=== PATIENT | female | born 1980 | race Caucasian/White ===

== ENCOUNTER 2019-08-14 09:17 | Day surgery (SDC) | payer OTHER ==
[2019-08-14] MEDS ORDERED: CEFAZOLIN/SWI 2gm 2 GM/20 ML SYR ONE (09:36)
[2019-08-14] MEDS ORDERED: Ringers Lactate 1,000 ML IV ONE (09:38)
[2019-08-14 09:41] LABS: Specific Gravity 1.025 (1.005-1.030)
[2019-08-14] MEDS ORDERED: propofoL 200 MG/20 ML VIAL IV ONE (10:30)
[2019-08-14] MEDS ORDERED: LIDOCAINE 2% MPF 5 ML VIAL ONE (10:31)
[2019-08-14] MEDS ORDERED: MIDAZOLAM HCL 2 MG/2 ML INJ ONE (10:31)
[2019-08-14] MEDS ORDERED: FENTANYL CITR 100 MCG/2 ML ONE ×2 (10:31→11:15)
[2019-08-14] MEDS ORDERED: ONDANSETRON 4 MG/2 ML VIAL ONE (10:44)
[2019-08-14] MEDS ORDERED: KETOROLAC 30 MG/ML INJ ONE (11:17)
[2019-08-14 11:49] VITALS: O2SAT 100
[2019-08-14] MEDS ORDERED: HYDROCODONE/APAP 5/325 MG TAB ONE (12:44)
[2019-08-14 16:23] VITALS: BP 151/92; TEMP 97.2
--- NOTE | 2019-08-14 23:25 | OP ---
Date of Procedure: 08/14/2019 Surgeon: Anni Leyva MD Preoperative Diagnosis: Menorrhagia. Postoperative Diagnosis: Menorrhagia. Procedure Performed: Hysteroscopy, endometrial ablation with NovaSure. Anesthesia: General with LMA. Specimens: None. Complications: None. Drains: None. Condition: Stable. Findings: Uterus anteflexed with hysteroscopic exam. The cavity was small. The cavity measurements , length 4 cm and 3.74 cm, width 2.5 cm, power 55 william, and time of ablation 120 seconds. Description Of Procedure: After informed consent was verified, patient was taken back to OR and 2 g of Ancef were given. She was placed in a supine fashion. General anesthesia given and placed in a d orsal lithotomy position using Ben stirrups. Pelvic exam performed. Uterus anteflexed small. No adnexal masses. Prep x3 with Betadine was done and anterior lip grasped with 2 Allis clamps. Diagnostic SlimLine hys teroscope was used to perform the hysteroscopy. Cavity was visualized. Lining appeared to be unrema rkable. Cavity was small. Scope was removed after measuring the top of the fundus directly and then measuring the cervix directly from the internal os to the external os. Then, the calculated cavity length was 4 cm. This was input into the NovaSure generator. Then, the width was assessed after dep loying the NovaSure device into the uterine cavity. The width was 2.5 cm. Power setting was at 55 w atts and time of ablation was 120 seconds. Then, the power was calculated to be 55 william. Then, the cervix was occluded with the help of the kn ob on the shaft of the NovaSure device. Then, once the cavity integrity test was done in the past, t he generator was enabled and the ablation was started. After the 2 minute ablation cycle, the device was undeployed in the usual fashion. Then, hysteroscope was placed into the uterine cavity and irri gated and visualized. There was excellent burden from each tubal ostium to the other and from the fu ndus all the way down to the internal os. The scope was removed. All instrument, needle, and sponge counts were done and were correct at the end of the case. Patient tolerated the procedure well. Tommy arevalo will follow up with us in 4 weeks. Estimated Blood Loss: Minimal. SK/MODL Voice ID: [id number] Report ID: [id number]
== END 2019-08-14 13:35 | disposition home or self-care (01) ==
LOC: OR 09:17
PROVIDERS: ATTEND Obstetrics & Gynecology
PROC: 0U5B8ZZ Destruction of Endometrium, Via Natural or Artificial Opening Endoscopic (ICD-10-PCS; principal; 2019-08-14 10:30)
DX: N92.1 Excessive and frequent menstruation with irregular cycle (principal); K21.9 Gastro-esophageal reflux disease without esophagitis; M19.90 Unspecified osteoarthritis, unspecified site; Z80.3 Family history of malignant neoplasm of breast; Z80.42 Family history of malignant neoplasm of prostate; Z82.62 Family history of osteoporosis; Z82.49 Family history of ischemic heart disease and other diseases of the circulatory system
CPT/HCPCS: 81025; 58563; J2704; J2250; J3010 ×2; J0690; J7120; J2405